=== PATIENT | male | born 1960 | race Caucasian/White ===

== ENCOUNTER 2017-12-15 21:08 | Emergency (ER) | payer SELFPAY ==
--- NOTE | 2017-12-15 22:06 | RAD ---
Indication: LEFT knee pain and swelling for 2 weeks without known injury. History of arthritis. Comparison: No relevant prior exams available on the [facility] PACS for comparison. Technique: LEFT knee: AP, tunnel, lateral, sunrise views. Report: Mild osteophytosis. Mild medial joint space narrowing. Negative for effusion or fracture. Mild anterior soft tissue swelling. Peripheral vascular calcifications. IMPRESSION: Kellgren and Solitario grade 2 osteoarthritis.
[2017-12-15 22:07] VITALS: BP 137/84
--- NOTE | 2017-12-15 22:19 | ED ---
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 x 2 weeks, hurts to walk from sitting position and getting worse - History of Current Complaint Chief Complaint: UCLowerExtremity Stated Complaint: L KNEE PAIN,SWELLING Time Seen by Provider: 12/15/17 21:44 Hx Obtained From: Patient Mechanism Of Injury: Other - overuse Onset/Duration: Weeks Severity Initially: Moderate Severity Currently: Severe Pain Intensity: 10 - Allergies/Home Medications Allergies/Adverse Reactions: Allergies Allergy/AdvReac Type Severity Reaction Status Date / Time bee venom protein (honey bee) Allergy Anaphylatic Verified 12/15/17 22:07 Shock PMH/Surg Hx/FS Hx/Imm Hx Previously Healthy: Yes Endocrine/Hematology History: Denies: Hx Diabetes - Surgical History Surgery Procedure, Year, and Place: both shoulders-1998,2005. Right ankle surgery Infectious Disease History: No Infectious Disease History: Denies: Traveled Outside the [place] in Last 30 Days - Family History Known Family History: Positive: Cardiac Disease, Diabetes, Other - Cancer, Sarcoidosis - Social History Alcohol Use: Daily Alcohol Amount: 4-5 drinks/night Substance Use Type: Reports: None Smoking Status (MU): Heavy Every Day Tobacco Smoker Amount Used/How Often: 1.5 PPD Have You Smoked in the Last Year: Yes Review of Systems Constitutional: Negative Eyes: Negative ENT: Negative Cardiovascular: Negative Respiratory: Negative Gastrointestinal: Negative Genitourinary: Negative Positive: Other - left knee pain Positive: Rash Neurological: Negative Psychological: Normal All Other Systems Reviewed And Are Negative: Yes Physical Exam Triage Information Reviewed: Yes Vital Signs On Initial Exam: Initial Vitals Temp Pulse Resp BP Pulse Ox 36.8 C 83 18 137/84 99 12/15/17 22:01 12/15/17 22:01 12/15/17 22:01 12/15/17 22:01 12/15/17 22:01 Vital Signs Reviewed: Yes Appearance: Positive: Pain Distress Skin: Positive: Warm Eyes: Positive: Normal ENT: Positive: Normal ENT inspection Neck: Positive: Supple Respiratory/Lung Sounds: Positive: Clear to Auscultation Cardiovascular: Positive: Normal, S1, S2 Musculoskeletal: Positive: Limited @ - LEft knee tenderness SEVERE in medial jointline, minimal swelling Neurological: Positive: Normal Psychiatric: Positive: Normal Diagnostics - Vital Signs Vital Signs Temp Pulse Resp BP Pulse Ox 12/15/17 22:01 36.8 C 83 18 137/84 99 - Laboratory Lab Statement: Any lab studies that have been ordered have been reviewed, and results considered in the medical decision making process. Lower Extremity Course/Dx - Course Course Of Treatment: XR of left knee - medial joint line narrowing, grade 2 OA. moderately interferes with pt's lifestyle- f/u with ortho - Diagnoses Provider Diagnoses: Osteoarthritis of left knee Discharge - Sign-Out/Discharge Documenting (check all that apply): Discharge/Admit/Transfer - Discharge Plan Condition: Stable Disposition: HOME Patient Education Materials: Osteoarthritis (ED) Referrals: Baliee Infante MD [Medical Doctor] - - Billing Disposition and Condition Condition: STABLE Disposition: HOME
[2017-12-15] MEDS ORDERED: HYDROcodone/ACETAMIN 5-325 MG* 1 TAB PO ONE (22:25)
== END 2017-12-15 22:51 | disposition home or self-care (01) ==
LOC: UCEAST 21:08
DX: M17.12 Unilateral primary osteoarthritis, left knee (principal); F17.210 Nicotine dependence, cigarettes, uncomplicated; Z91.030 Bee allergy status
CPT/HCPCS: 99212; G0463

== ENCOUNTER 2018-10-12 17:19 | Emergency (ER) | payer SELFPAY ==
[2018-10-12 17:34] VITALS: BP 155/86
[2018-10-12] MEDS ORDERED: Albuterol/Ipratropium NEB.SOL* Albuterol 2.5 MG/Ipratropium 0.5 MG 3 ML INH ONE (17:39)
--- NOTE | 2018-10-12 17:42 | ED ---
Respiratory - HPI Summary HPI Summary: 58-year-old male presents with cough for the past 4 days. He admits occasional shortness breath. No chest pain. no recent weight changes. No pain or swelling in his calf muscles. He states he is a heavy smoker. He states cough is dry. He admits to a sore throat from coughing. No sinus congestion. No postnasal drip. no Nausea or vomiting. - History of Current Complaint Chief Complaint: UCRespiratory Stated Complaint: CHEST CONGESTION Time Seen by Provider: 10/12/18 17:34 Pain Intensity: 3 - Allergy/Home Medications Allergies/Adverse Reactions: Allergies Allergy/AdvReac Type Severity Reaction Status Date / Time bee venom protein (honey bee) Allergy Anaphylatic Verified 10/12/18 17:34 Shock PMH/Surg Hx/FS Hx/Imm Hx Endocrine/Hematology History: Denies: Hx Diabetes Respiratory History: Denies: Hx Asthma, Hx Chronic Obstructive Pulmonary Disease (COPD) - Surgical History Surgery Procedure, Year, and Place: both shoulders-1998,2005. Right ankle surgery Infectious Disease History: No Infectious Disease History: Denies: Traveled Outside the [place] in Last 30 Days - Family History Known Family History: Positive: Cardiac Disease, Diabetes, Other - Cancer, Sarcoidosis - Social History Alcohol Use: Daily Alcohol Amount: 4-5 drinks/night Substance Use Type: Reports: None Smoking Status (MU): Heavy Every Day Tobacco Smoker Amount Used/How Often: 1.5 PPD Have You Smoked in the Last Year: Yes Review of Systems Negative: Fever Negative: Chest Pain Positive: Shortness Of Breath, Cough Negative: Abdominal Pain All Other Systems Reviewed And Are Negative: Yes Physical Exam Triage Information Reviewed: Yes Vital Signs On Initial Exam: Initial Vitals Temp Pulse Resp BP Pulse Ox 98.7 F 79 18 155/86 96 10/12/18 17:27 10/12/18 17:27 10/12/18 17:27 10/12/18 17:27 10/12/18 17:27 Vital Signs Reviewed: Yes Appearance: Positive: Well-Appearing Skin: Positive: Warm, Dry Head/Face: Positive: Normal Head/Face Inspection Eyes: Positive: Normal, EOMI, LAYLA, Conjunctiva Clear ENT: Positive: Normal ENT inspection, Pharynx normal, TMs normal Respiratory/Lung Sounds: Positive: Decreased Breath Sounds, Wheezes Cardiovascular: Positive: Normal, RRR Abdomen Description: Positive: Nontender, Soft Bowel Sounds: Positive: Present Musculoskeletal: Positive: Normal Neurological: Positive: Normal Psychiatric: Positive: Normal Diagnostics - Vital Signs Vital Signs Temp Pulse Resp BP Pulse Ox 10/12/18 17:27 98.7 F 79 18 155/86 96 - Laboratory Lab Statement: Any lab studies that have been ordered have been reviewed, and results considered in the medical decision making process. - Radiology chest Radiology Interpretation Completed By: Radiologist Summary of Radiographic Findings: IMPRESSION: No radiographic evidence of acute cardiopulmonary disease. Re-Evaluation - Re-Evaluation First Eval Re-Evaluation Time: 18:16 Change: Improved Comment: feeling better after duoneb Disposition - Course Course Of Treatment: 58-year-old male presents with cough for the past 4 days. He admits occasional shortness breath. No chest pain. no recent weight changes. No pain or swelling in his calf muscles. He states he is a heavy smoker. He states cough is dry. He admits to a sore throat from coughing. No sinus congestion. No postnasal drip. no Nausea or vomiting. On exam wheezing and dec breath sounds present. Chest x-ray shows no pneumonia. Discharge with inhaler and steroid. with history of smoking likely COPD component symptoms will treat with azithromycin. will have follow up with primary about blood pressure. Patient understands agrees with plan. - Differential Dx - Cardiopulmonary Differential Diagnoses - Cardiopulmonary: Bronchitis, Influenza, Lower Resp Infection - Diagnoses Provider Diagnoses: Bronchitis Discharge - Sign-Out/Discharge Documenting (check all that apply): Patient Departure All imaging exams completed and their final reports reviewed: Yes - Discharge Plan Condition: Good Disposition: HOME Prescriptions: Albuterol HFA INHALER* [Ventolin HFA Inhaler*] 1 puff INH Q6H PRN #1 mdi PRN Reason: Cough Azithromycin TAB* [Zithromax TAB (Z-LISSETT) 250 mg #6 tabs] 2 tab PO .TODAY, THEN 1 DAILY #1 lissett predniSONE TAB* [Deltasone TAB*] 50 mg PO DAILY #5 tab Patient Education Materials: Acute Bronchitis (ED) Referrals: [facility] [place] [place] [facility] [Outside] Additional Instructions: Use inhaler up to two puffs every 4 hours for cough and wheezing Take steroid once a day for 5 days Take antibiotic two tablets today, one tablet for next 4 days Take Tylenol for pain every 6 hours establish care with primary Return to ED if develop severe shortness of breath, worsening chest pain, or any new or worsening symptoms - Billing Disposition and Condition Condition: GOOD Disposition: Home - Attestation Statements Provider Attestation: I was available for consult. This patient was seen by the SHAKIR. The patient was not presented to, seen by, or examined by me. -Pilar
== END 2018-10-12 18:25 | disposition home or self-care (01) ==
LOC: UCEAST 17:19
DX: J40 Bronchitis, not specified as acute or chronic (principal); F17.210 Nicotine dependence, cigarettes, uncomplicated; Z91.030 Bee allergy status
CPT/HCPCS: 71046; 99212; A9270-GY; G0463

== ENCOUNTER 2019-10-17 13:32 | Emergency (ER) | payer OTHER ==
[2019-10-17 13:50] VITALS: BP 148/107
--- NOTE | 2019-10-17 13:53 | UC ---
Hand/Wrist HPI - HPI Summary HPI Summary: The patient is a 59-year-old male that noticed the onset of swelling and pain overlying the dorsum of his right wrist yesterday after work. He works as a elevator repair mechanic. He has noted no injury. He has had a history of bursitis and tendinitis in the past. He is right handed. He has no numbness or tingling. He states that he has had a history of a fracture to his right scaphoid bone. - History Of Current Complaint Chief Complaint: UCGU Stated Complaint: HAND INJURY Time Seen by Provider: 10/17/19 13:36 Hx Obtained From: Patient Onset/Duration: Gradual Onset, Lasting Hours Severity Initially: Mild Severity Currently: Severe Pain Intensity: 10 - 3 at rest/10 with movement Pain Scale Used: 0-10 Numeric Character Of Pain: Sharp Aggravating Factor(s): Movement Alleviating Factor(s): Rest Associated Signs And Symptoms: Positive: Swelling Related History: Dominant Hand Right Hands: 1 - swollen/tender/no cystic mass/no crepitus - Allergies/Home Medications Allergies/Adverse Reactions: Allergies Allergy/AdvReac Type Severity Reaction Status Date / Time bee venom protein (honey bee) Allergy Anaphylatic Verified 10/17/19 13:49 Shock Home Medications: Home Medications Albuterol HFA INHALER* [Ventolin HFA Inhaler*] 1 puff INH Q6H PRN #1 mdi [Rx Confirmed 10/17/19] Naproxen Sodium [Naproxen 220 mg] 220 mg PO BID PRN 03/17/19 [History Confirmed 10/17/19] PMH/Surg Hx/FS Hx/Imm Hx Previously Healthy: Yes Respiratory History: Bronchitis - Surgical History Surgical History: Yes Surgery Procedure, Year, and Place: both shoulders-1998,2005 - Family History Known Family History: Positive: Cardiac Disease, Hypertension, Diabetes, Other - Cancer, Sarcoidosis - Social History Alcohol Use: Daily Alcohol Amount: 8 beers/night Substance Use Type: None Smoking Status (MU): Heavy Every Day Tobacco Smoker Amount Used/How Often: 2 PPD Have You Smoked in the Last Year: Yes Cessation Counseling: Patient Advised to Stop Review of Systems All Other Systems Reviewed And Are Negative: Yes Constitutional: Positive: Negative Skin: Positive: Negative Eyes: Positive: Negative ENT: Positive: Negative Respiratory: Positive: Other - chronic smokers cough- unchanged Cardiovascular: Positive: Negative Gastrointestinal: Positive: Negative Genitourinary: Positive: Negative Motor: Positive: Negative Neurovascular: Positive: Negative Musculoskeletal: Positive: Negative Neurological/Mental Status: Positive: Negative Psychological: Positive: Negative Physical Exam Triage Information Reviewed: Yes Appearance: Well-Appearing, No Pain Distress, Well-Nourished Vital Signs: Vital Signs: Temp Pulse Resp BP Pulse Ox 98.0 F 95 18 148/107 97 10/17/19 13:37 10/17/19 13:37 10/17/19 13:37 10/17/19 13:37 10/17/19 13:37 Vital Signs Reviewed: Yes Eyes: Positive: Conjunctiva Clear ENT: Positive: Hearing grossly normal, Sinus tenderness. Negative: Nasal congestion, Nasal drainage, Trismus, Muffled voice, Hoarse voice Dental: Negative: Dental Fracture @ Neck: Positive: Supple Respiratory: Positive: No respiratory distress, No accessory muscle use, Rhonchi - scatterred Cardiovascular: Positive: RRR, No Murmur Musculoskeletal: Positive: ROM Limited @ - right wrist, Edema @ - dorsum or right wrist Psychological Exam: Normal Skin Exam: Normal Diagnostics - Radiology No standard instances Radiology Interpretation Completed By: Radiologist Summary of Radiographic Findings: 1. Moderate first CMC arthropathy. 2. Negative ulnar variance Hand/Wrist Course/Dx - Course Course Of Treatment: patient advised of need to follow up with his BP He states he isn't worried about it and won't take BP meds - Differential Dx/Diagnosis Provider Diagnosis: Right wrist tendonitis Discharge ED - Sign-Out/Discharge Documenting (check all that apply): Patient Departure All imaging exams completed and their final reports reviewed: Yes - Discharge Plan Condition: Stable Disposition: HOME Patient Education Materials: Tendinitis (ED) Referrals: Cadence Malcolm MD [Medical Doctor] - 1 Week Additional Instructions: use your carpal tunnel splint warm soaks with range of motion followed by massage aleve 1-2 twice daily with food as needed for pain - Billing Disposition and Condition Condition: STABLE Disposition: Home
== END 2019-10-17 14:26 | disposition home or self-care (01) ==
LOC: UCEAST 13:32
DX: M65.842 Other synovitis and tenosynovitis, left hand (principal); M18.11 Unilateral primary osteoarthritis of first carpometacarpal joint, right hand; M25.531 Pain in right wrist; Z91.030 Bee allergy status; F17.200 Nicotine dependence, unspecified, uncomplicated
CPT/HCPCS: 99211; G0463

== ENCOUNTER 2020-03-18 05:54 | Inpatient (IN) ==
[2020-03-18] MEDS ORDERED: Dexamethasone IV 4 MG/ML VIAL 1 ml VIAL IV SLOW PU ONE (06:00)
[2020-03-18] MEDS ORDERED: Lactated Ringers 1000 ml BAG 1,000 ML IV SCH (06:00)
[2020-03-18] MEDS ORDERED: Buffered Lidocaine 1% SYRIN 1 ml INTRADERM ONE ×2 (06:00→06:21)
[2020-03-18] MEDS ORDERED: Famotidine IV 10 MG/ML 2 ml VIAL (20 mg) IV ONE (06:00)
[2020-03-18] MEDS ORDERED: Levalbuterol 1.25MG/0.5ML NEB.SOL INH ONE (06:00)
[2020-03-18] MEDS ORDERED: Dexamethasone IV 4 MG/ML VIAL 1 ml VIAL ONE (06:21)
[2020-03-18] MEDS ORDERED: Famotidine IV 10 MG/ML 2 ml VIAL (20 mg) ONE (06:21)
[2020-03-18] MEDS ORDERED: ceFAZolin 2 GM PREMIX 2 GM/50 ML BAG ONE ×2 (06:21→12:00)
[2020-03-18] MEDS ORDERED: Bacitracin INJECTION 50,000 UNITS ONE (06:56)
[2020-03-18] MEDS ORDERED: Levalbuterol 1.25MG/0.5ML NEB.SOL ONE (07:05)
[2020-03-18] MEDS ORDERED: Remifentanil 2 MG VIAL ONE (07:10)
[2020-03-18] MEDS ORDERED: Midazolam 2 mg/2 ml VIAL 1 mg/ml 2 ml VIAL (2 mg) ONE (07:10)
[2020-03-18] MEDS ORDERED: Propofol 10 MG/ML 20 ML BTL ONE (07:10)
[2020-03-18] MEDS ORDERED: Ketamine HCL 50 mg/ml 10 ml VIAL (500 MG) ONE (07:10)
[2020-03-18] MEDS ORDERED: Succinylcholine 200 mg VIAL 20 mg/ml 10 ml VIAL (200 mg) ONE (07:10)
[2020-03-18] MEDS ORDERED: Propofol 1,000 MG/100 ML BTL ONE (07:10)
[2020-03-18] MEDS ORDERED: Lidocaine 2% PF 5 ML VIAL ONE (07:10)
[2020-03-18] MEDS ORDERED: fentaNYL 250 mcg/5 ml 50 MCG/ML 5 ml VIAL (250 MCG) ONE (07:10)
[2020-03-18] MEDS ORDERED: Rocuronium 50 mg VIAL 10 mg/ml 5 ml VIAL (50 mg) ONE (07:10)
[2020-03-18] MEDS ORDERED: Lidocaine 2% JELLY 6 ML TOPICAL ONE (07:53)
[2020-03-18] MEDS ORDERED: Propofol 10 mg/ml 100 ML BTL 100 ML ONE (10:52)
[2020-03-18] MEDS ORDERED: Phenylephrine 40 mcg/mL 10mL (400mcg) SYRINGE ONE (11:47)
[2020-03-18] MEDS ORDERED: EPHEDrine (Pressors) 50 MG/ML VIAL ONE (12:03)
[2020-03-18] MEDS ORDERED: Phenylephrine IV 10 MG/ML 1 ml VIAL ONE (12:03)
[2020-03-18] MEDS ORDERED: HYDROmorphone 1 MG/1 ML SYRINGE ONE ×2 (12:06→13:18)
[2020-03-18] MEDS ORDERED: Magnesium Hydroxide LIQ 30 ML UDC PO PRN (12:47)
[2020-03-18] MEDS ORDERED: Ondansetron 4 mg VIAL 2 MG/ML 2 ml VIAL IV PRN ×2 (12:47→12:51)
[2020-03-18] MEDS ORDERED: HYDROcodone/ACETAMIN 5/325 mg TAB PO PRN (12:47)
[2020-03-18] MEDS ORDERED: DiMENhydriNATE IV 50 mg/ml 1 ml VIAL IV PUSH PRN (12:51)
[2020-03-18] MEDS ORDERED: Naloxone 0.4 mg VIAL 0.4 mg/ml 1 ml VIAL IV PRN (12:51)
[2020-03-18] MEDS ORDERED: fentaNYL 100 mcg/2 ml 50 MCG/ML VIAL ONE ×2 (12:57→13:18)
[2020-03-18] MEDS: fentaNYL 100 mcg/2 ml 50 MCG/ML VIAL IV PRN ×4 (12:58→13:36)
[2020-03-18] MEDS ORDERED: DiMENhydriNATE IV 50 mg/ml 1 ml VIAL ONE (13:19)
[2020-03-18] MEDS: HYDROmorphone 1 MG/1 ML SYRINGE IV PRN ×5 (13:23→13:55)
[2020-03-18] MEDS ORDERED: Lorazepam PYXIS KEY PRN (13:30)
[2020-03-18] MEDS ORDERED: LORazepam 2 mg VIAL 1 ml IV PUSH PRN (13:30)
[2020-03-18] MEDS ORDERED: hydrALAZINE 20 mg/ml 1 ML Vial IV IV SLOW PU PRN (13:31)
[2020-03-18] MEDS ORDERED: Labetalol IV 5 MG/ML 20 ml VIAL IV PUSH PRN (13:50)
[2020-03-18] MEDS: HYDROcodone/ACETAMIN 5/325 mg TAB PO PRN ×3 (14:58→23:57)
[2020-03-18] MEDS ORDERED: HYDROmorphone 1 MG/1 ML SYRINGE IV ONE (18:41)
[2020-03-19] MEDS: HYDROcodone/ACETAMIN 5/325 mg TAB PO PRN ×3 (03:53→11:31)
[2020-03-19 11:50] VITALS: BP 104/68
== END 2020-03-19 14:00 | disposition home or self-care (01) | DRG 321 ==
LOC: AA 05:54 → SSU 14:27
PROVIDERS: ADMIT Neurological Surgery; ATTEND Neurological Surgery

== ENCOUNTER 2020-03-21 19:13 | Observation (INO) ==
[2020-03-21] MEDS ORDERED: NS 0.9% 1000 ml BAG 1,000 ML IV ONE (20:20)
[2020-03-21] MEDS ORDERED: Diazepam INJ CARPUJECT 5 MG/ML IV ONE (20:24)
[2020-03-21 21:00] LABS: ABS Basophils 0.1 10^3/ul (0-0.2); ABS Eosinophils 0.2 10^3/ul (0-0.6); ABS Lymphocytes 2.2 10^3/ul (1.0-4.8); ABS Monocytes 0.9 10^3/ul (0-0.8); ABS Neutrophils 8.3 10^3/ul (1.5-7.7); Eosinophil % 1.8 %; Hematocrit 46 % (42-52); Hemoglobin 16.2 g/dL (14.0-18.0); Mean Corpuscular HGB Conc 35 g/dL (31-36); Mean Corpuscular Hemoglobin 32 pg (27-31); Mean Corpuscular Volume 92 fL (80-94); Mean Platelet Volume 8.8 fL (7.4-10.4); Nucleated Red Blood Cells % 0.1; Platelet Count 247 10^3/uL (150-450); Red Blood Count 5.06 10^6 /uL (4.18-5.48); Red Cell Distribution Width 13 % (10-15); White Blood Count 11.6 10^3/uL (3.5-10.8)
[2020-03-21] MEDS ORDERED: fentaNYL 100 mcg/2 ml 50 MCG/ML VIAL IV SLOW PU ONE (21:03)
[2020-03-21 21:04] LABS: INR 1.1 (0.82-1.09)
[2020-03-21 21:16] LABS: Albumin 3.9 g/dL (3.2-5.2); Albumin/Globulin Ratio 1.1 (1-3); BUN/Creatinine Ratio 20.5 (8-20); Calcium 9.8 mg/dL (8.6-10.3); EGFR African American 114.7 (>60); EGFR Non-African American 94.8 (>60); Globulin 3.5 g/dL (2-4); Total Bilirubin 0.7 mg/dL (0.2-1.0); Total Protein 7.4 g/dL (6.4-8.9)
[2020-03-21 22:22] LABS: Erythrocyte Sed Rate 38 mm/Hr (0-19)
[2020-03-21] MEDS ORDERED: Ondansetron 4 mg VIAL 2 MG/ML 2 ml VIAL IV PRN (23:03)
[2020-03-21] MEDS ORDERED: Senna TAB 8.6 mg TAB PO PRN (23:06)
[2020-03-21] MEDS ORDERED: Magnesium Hydroxide LIQ 30 ML UDC PO PRN (23:06)
[2020-03-21] MEDS ORDERED: Polyethylene Glycol 3350 17 GM PACKET PO PRN (23:06)
[2020-03-21] MEDS ORDERED: HYDROmorphone 0.5 MG/0.5 ML SYRINGE IV SLOW PU PRN (23:19)
[2020-03-21] MEDS ORDERED: Albuterol HFA INHALER 8 gm MDI INH PRN (23:49)
[2020-03-22 05:06] LABS: ABS Basophils 0.1 10^3/ul (0-0.2); ABS Eosinophils 0.3 10^3/ul (0-0.6); ABS Lymphocytes 2.3 10^3/ul (1.0-4.8); ABS Monocytes 0.8 10^3/ul (0-0.8); ABS Neutrophils 5.8 10^3/ul (1.5-7.7); Eosinophil % 3.5 %; Hematocrit 42 % (42-52); Hemoglobin 14.5 g/dL (14.0-18.0); Lymphocyte % 25.1 %; Mean Corpuscular HGB Conc 35 g/dL (31-36); Mean Corpuscular Hemoglobin 32 pg (27-31); Mean Corpuscular Volume 92 fL (80-94); Mean Platelet Volume 8.3 fL (7.4-10.4); Nucleated Red Blood Cells % 0.1; Platelet Count 241 10^3/uL (150-450); Red Blood Count 4.57 10^6 /uL (4.18-5.48); Red Cell Distribution Width 13 % (10-15); White Blood Count 9.3 10^3/uL (3.5-10.8)
[2020-03-22 05:22] LABS: BUN/Creatinine Ratio 23.1 (8-20); Calcium 9.2 mg/dL (8.6-10.3); EGFR African American 123.3 (>60); EGFR Non-African American 101.9 (>60); Magnesium 1.9 mg/dL (1.9-2.7); Potassium 3.7 mmol/L (3.5-5.0)
[2020-03-22] MEDS: HYDROmorphone 1 MG/1 ML SYRINGE IV SLOW PU PRN ×2 (07:55→13:02)
[2020-03-22] MEDS: VARENICLINE 0.5 MG TAB(NF) PO SCH ×2 (09:00→21:08)
[2020-03-22 18:10] LABS: Urine Appearance Clear; Urine Bilirubin Negative (Negative); Urine Blood Negative (Negative); Urine Color Amber; Urine Glucose Negative (Negative); Urine Ketones 1+ (Negative); Urine Nitrite Negative (Negative); Urine Protein 1+(30 mg/dL) (Negative); Urine Specific Gravity 1.039 (1.010-1.030); Urine Urobilinogen Positive (Negative)
[2020-03-22 18:15] LABS: Urine Bacteria Absent (Absent); Urine Red Blood Cell Trace(0-2/hpf) (Absent); Urine White Blood Cell Trace(0-5/hpf) (Absent)
[2020-03-23 06:24] LABS: ABS Basophils 0.1 10^3/ul (0-0.2); ABS Eosinophils 0.4 10^3/ul (0-0.6); ABS Lymphocytes 1.8 10^3/ul (1.0-4.8); ABS Monocytes 0.6 10^3/ul (0-0.8); ABS Neutrophils 4.5 10^3/ul (1.5-7.7); Eosinophil % 5.6 %; Hematocrit 39 % (42-52); Hemoglobin 13.8 g/dL (14.0-18.0); Lymphocyte % 24.3 %; Mean Corpuscular HGB Conc 35 g/dL (31-36); Mean Corpuscular Hemoglobin 32 pg (27-31); Mean Corpuscular Volume 92 fL (80-94); Mean Platelet Volume 7.9 fL (7.4-10.4); Platelet Count 259 10^3/uL (150-450); Red Blood Count 4.26 10^6 /uL (4.18-5.48); Red Cell Distribution Width 13 % (10-15); White Blood Count 7.5 10^3/uL (3.5-10.8)
[2020-03-23 06:47] LABS: BUN/Creatinine Ratio 23.7 (8-20)
[2020-03-23] MEDS: VARENICLINE 0.5 MG TAB(NF) PO SCH (09:18)
[2020-03-23 11:12] VITALS: BP 129/73
== END 2020-03-23 14:53 | disposition home or self-care (01) ==
LOC: SSU 19:13 → ED 19:13 → SSU 03-22 00:56
PROVIDERS: ADMIT Internal Medicine; ATTEND Internal Medicine